=== PATIENT | female | born 1965 | race African-American/Black ===

== ENCOUNTER 2016-08-09 20:03 | Emergency (ER) | payer OTHER ==
[~2016-08-09] VITALS: Ht 165.1 cm; Wt 104.5 kg
[~2016-08-09 20:03] MED LIST: ALEVE220 MG PO; AMITIZA24 MICROGR PO; ATORVASTATIN CA40 MG PO; CIPRO500 MG PO; COZAAR50 MG PO; DILAUDID2 MG PO; FEOSOL325 MG PO; INDOCIN50 MG PO; LIPITOR20 MG PO; LITE COAT ASPI325 M1 PO; LOSARTAN POTASS50 MG PO; MECLIZINE HCL25 MG PO; MOTRIN800 MG PO; MULTIVITAMIN1 EAC1 PO; ONE DAILY1 EAC3 PO; PROBIOTIC1 EAC1 PO; SYNTHROID125 MCG PO; SYNTHROID200 MCG PO; VICODIN PO
[2016-08-09 20:36] LABS: HEMATOCRIT 36.3 % (36.0-46.0); MCH 27.7 PG (29.0-34.0); MCHC 33.3 G/DL (30.0-36.0); MCV 83.1 FL (83-99); MEAN PLAT.VOLUME 10.2 uM^3 (9.5-12.4); PLATELET COUNT 297 K/uL (156-360); RBC DIS.WIDTH-CV 14.8 % (11.8-14.6); RBC DIS.WIDTH-SD 43.9 % (39-53); RED BLOOD COUNT 4.37 M/uL (3.80-5.20); WHITE BLOOD COUNT 4.3 K/uL (4.1-10.2)
[2016-08-09 20:46] LABS: CHLORIDE 108 mEq/L (99-109); POTASSIUM 3.8 mEq/L (3.7-5.4); SODIUM 140 mEq/L (136-147)
[2016-08-09 20:47] LABS: GLUCOSE 92 mg/dL (70-99)
[2016-08-09 20:49] LABS: ANION GAP 9 MEQ/L (2-14)
[2016-08-09 20:51] LABS: GFR ESTIMATE (CALCULATED) > 59 mL/min/
[2016-08-09 20:52] LABS: UREA NITROGEN (BUN) 8 mg/dL (9-23)
[2016-08-09 22:06] VITALS: BP 162/106
== END 2016-08-09 22:10 | disposition home or self-care (01) ==
LOC: EME 20:03
PROVIDERS: Emergency Medicine
DX: I10 Essential (primary) hypertension (principal); E86.0 Dehydration; R55 Syncope and collapse; Z79.82 Long term (current) use of aspirin
CPT/HCPCS: 80048; 85027; 93005; 99281; 99284; J7030

== ENCOUNTER 2016-11-19 13:28 | Emergency (ER) | payer OTHER ==
[~2016-11-19] VITALS: Ht 165.1 cm; Wt 104.9 kg
[2016-11-19] MEDS ORDERED: FLONASE SENSIM9.9 ML BOTH NARES (15:10)
[2016-11-19] MEDS ORDERED: KEFLEX500 MG PO (15:18)
[2016-11-19 15:30] VITALS: BP 182/119
== END 2016-11-19 15:36 | disposition home or self-care (01) ==
LOC: EME 13:28
DX: R22.0 Localized swelling, mass and lump, head (principal); R51 Headache; R20.0 Anesthesia of skin; Z85.858 Personal history of malignant neoplasm of other endocrine glands
CPT/HCPCS: 99281; 99284

== ENCOUNTER 2017-01-10 00:11 | Observation (INO) | payer OTHER ==
[~2017-01-10] VITALS: Ht 165.1 cm; Wt 105.0 kg
[~2017-01-10 00:11] MED LIST changes: +FLONASE SENSIM9.9 ML BOTH NARES; +KEFLEX500 MG PO
[2017-01-10 01:22] LABS: HEMATOCRIT 38.1 % (36.0-46.0); MCH 26.3 PG (29.0-34.0); MCHC 31.5 G/DL (30.0-36.0); MCV 83.4 FL (83-99); MEAN PLAT.VOLUME 11.2 uM^3 (9.5-12.4); PLATELET COUNT 275 K/uL (156-360); RBC DIS.WIDTH-CV 15.5 % (11.8-14.6); RBC DIS.WIDTH-SD 47.2 % (39-53); RED BLOOD COUNT 4.57 M/uL (3.80-5.20); WHITE BLOOD COUNT 4.7 K/uL (4.1-10.2)
[2017-01-10 01:29] LABS: CHLORIDE 106 mEq/L (99-109); POTASSIUM 3.4 mEq/L (3.7-5.4); SODIUM 140 mEq/L (136-147)
[2017-01-10 01:31] LABS: GLUCOSE 106 mg/dL (70-99)
[2017-01-10 01:33] LABS: ANION GAP 8 MEQ/L (2-14)
[2017-01-10 01:35] LABS: GFR ESTIMATE (CALCULATED) > 59 mL/min/
[2017-01-10 01:36] LABS: UREA NITROGEN (BUN) 9 mg/dL (9-23)
[2017-01-10 01:41] LABS: TROP-I INTERPRETATION NEGATIVE; TROPONIN-I < 0.01 ng/mL (0.0-0.30)
[2017-01-10 03:46] LABS: D-DIMER ELISA 0.53 mg/L FEU (< 0.57)
[2017-01-10 04:56] VITALS: BP 163/88
[2017-01-10 05:40] VITALS: BP 163/88
[2017-01-10 08:18] LABS: BASOPHIL COUNT 0.1 K/uL (0-0.1); EOSINOPHIL (%) 2.2 % (0-5); EOSINOPHIL COUNT 0.1 K/uL (0-0.3); HEMATOCRIT 36.2 % (36.0-46.0); INSTRUMENT ABS NEUTROPHIL CT 2.1 K/uL; LYMPHOCYTE COUNT 1.6 K/uL (1.0-2.8); MCH 27.2 PG (29.0-34.0); MCHC 32.3 G/DL (30.0-36.0); MCV 84.2 FL (83-99); MEAN PLAT.VOLUME 11.1 uM^3 (9.5-12.4); MONOCYTE (%) 7.5 % (3-12); MONOCYTE COUNT 0.3 K/uL (0-0.8); NEUTROPHIL (%) 49.5 % (45-76); NEUTROPHIL COUNT 2.1 K/uL (1.8-6.4); PLATELET COUNT 284 K/uL (156-360); RBC DIS.WIDTH-CV 15.7 % (11.8-14.6); RBC DIS.WIDTH-SD 47.7 % (39-53); WHITE BLOOD COUNT 4.1 K/uL (4.1-10.2)
[2017-01-10 08:32] LABS: INTER. NORMALIZED RATIO 1.1; PROTHROMBIN TIME 10.9 (9.2-11.2); PTT 30.2 (25-32)
[2017-01-10 08:47] LABS: ALKALINE PHOSPHATASE 49 IU/L (3-129); ANION GAP 8 MEQ/L (2-14); CHLORIDE 105 MEQ/L (99-109); GFR ESTIMATE (CALCULATED) > 59 mL/min/; GLUCOSE 95 mg/dL (70-99); POTASSIUM 3.9 MEQ/L (3.7-5.4); SAMPLE HEMOLYSIS CHECK 0; SAMPLE ICTERIC CHECK 0; SAMPLE LIPEMIA CHECK 0; SODIUM 141 MEQ/L (136-147); TOTAL BILIRUBIN 0.4 MG/DL (0.0-1.0); UREA NITROGEN (BUN) 8 mg/dL (9-23)
[2017-01-10 08:53] LABS: TROP-I INTERPRETATION NEGATIVE; TROPONIN-I 0.01 ng/mL (0.0-0.30)
[2017-01-10 09:59] VITALS: BP 133/77
[2017-01-10 11:31] VITALS: BP 134/80
[2017-01-10 15:11] LABS: TROP-I INTERPRETATION NEGATIVE; TROPONIN-I < 0.01 ng/mL (0.0-0.30)
[2017-01-10 15:38] VITALS: BP 136/80
[2017-01-10] MEDS ORDERED: SYNTHROID150 MCG PO (16:42)
[2017-01-10] MEDS ORDERED: ASPIR-LOW81 MG PO (16:42)
[2017-01-10] MEDS ORDERED: LOPRESSOR25 MG PO (16:53)
== END 2017-01-10 17:48 | disposition home or self-care (01) ==
LOC: EME 00:11 → EDOF 02:58 → 5WEST 04:53
PROVIDERS: Internal Medicine
DX: R07.9 Chest pain, unspecified (principal); E03.9 Hypothyroidism, unspecified; I10 Essential (primary) hypertension; E78.00 Pure hypercholesterolemia, unspecified; Z86.73 Personal history of transient ischemic attack (TIA), and cerebral infarction without residual deficits; R61 Generalized hyperhidrosis; R06.00 Dyspnea, unspecified; E66.9 Obesity, unspecified; Z68.38 Body mass index [BMI] 38.0-38.9, adult; E87.6 Hypokalemia
CPT/HCPCS: 71020; 80048; 80053; 84439; 84443; 84484; 85025; 85027; 85379; 85610; 85730; 93005; 99281; 99285; G0378; J1644